=== PATIENT | female | born 1995 | race Caucasian/White ===

== ENCOUNTER 2018-08-04 04:10 | Emergency (ER) | payer OTHER ==
[2018-08-04] MEDS ORDERED: Ondansetron ODT 8 MG TAB ONE (05:22)
[2018-08-04] MEDS ORDERED: diphenhydrAMINE 50 MG/ML VIAL ONE (05:22)
[2018-08-04] MEDS ORDERED: Metoclopramide HCl 10 MG/2 ML VIAL ONE (05:22)
[2018-08-04 05:31] LABS: #Eosinphils 0.1 thou/uL (0.0-0.7); #Lymphocytes 1.1 thou/uL (1.20-3.40); #Monocytes 0.6 thou/uL (0.11-0.59); #Neutrophils 9.3 thou/uL (1.40-6.50); %Basophils 0.2 % (0.0-1.0); %Eosinophils 0.6 % (0.0-10.0); %Lymphocytes 9.9 % (21.0-51.0); %Monocytes 5.3 % (0.0-10.0); %Neutrophils 84.1 % (42.0-75.0); Hemoglobin 10.8 g/dL (12.0-16.0); Mean Corpuscular HGB CONC 32.5 g/dL (32.0-36.0); Mean Corpuscular Hemoglobin 27.9 pg (27.0-31.0); Mean Corpuscular Volume 85.7 fL (78.0-98.0); Mean Platelet Volume 7.5 fL (7.4-10.4); Platelet Count 194 thou/uL (130-400); Red Blood Cell (RBC) Count 3.88 mill/uL (4.20-5.40)
[2018-08-04 05:54] LABS: ALT (SGPT) 9 U/L (8-55); AST (SGOT) 16 U/L (5-34); Albumin 4.2 g/dL (3.5-5.0); Alkaline Phosphatase 68 U/L (40-150); Anion Gap 13 mmol/L (10-20); BUN (Urea Nitrogen) 12 mg/dL (7.0-18.7); Bilirubin, Total 0.3 mg/dL (0.2-1.2); Calc. Creatinine Clearance 0 mL/min (70-130); Calcium 9.5 mg/dL (7.8-10.44); Carbon Dioxide 22 mmol/L (22-29); Chloride 107 mmol/L (98-107); Estimated GFR-MDRD 88; Globulin 2.8 g/dL (2.4-3.5); Glucose 107 mg/dL (70-105); Potassium 3.7 mmol/L (3.5-5.1); Sodium 138 mmol/L (136-145)
[2018-08-04] MEDS ORDERED: Ketorolac Tromethamine 30 MG/ML VIAL ONE (06:33)
--- NOTE | 2018-08-04 07:35 | CT ---
CT HEAD NONCONTRAST PERFORMED ON AN EMERGENCY BASIS: Date: 08/04/18 Time: 0557 hours HISTORY: Headache. FINDINGS: There is no evidence of acute intracranial hemorrhage or infarct. Small, ill-defined area of decrease d density is noted within the left frontal white matter. There is no mass effect or shift of midline structures. Ventricles appear normal in size, shape, and position. Visualized paranasal sinuses remai n well aerated. IMPRESSION: No acute intracranial abnormalities are reliably demonstrated. The area of decreased density within t he left frontal white matter, however, is unusual for a patient of this age and warrants further eval uation. Please consider nonemergent MRI brain, with and without Gadolinium contrast, for better aziza cterization. POS: JESSICA
== END 2018-08-04 06:46 | disposition home or self-care (01) ==
LOC: ERS 04:10
DX: R51 Headache (principal); D64.9 Anemia, unspecified
CPT/HCPCS: 36415; 70450; 80053; 85025; 96365; 96375; J1200; J1885; J2765

== ENCOUNTER 2018-10-27 08:28 | Outpatient (CLI) | payer OTHER ==
--- NOTE | 2018-10-27 10:59 | MRI ---
BRAIN MRI WITH AND WITHOUT CONTRAST: DATE: 10/27/2018. COMPARISON: None. HISTORY: Headache, pain behind both eyes. TECHNIQUE: Multiplanar, multisequence MR imaging of the brain is obtained with and without contrast. FINDINGS: The axial gradient echo imaging demonstrates no evidence for intracranial hemorrhage. The diffusion weighted imaging demonstrates no evidence for acute infarction. On the FLAIR and T2 weighted imaging, there is a focus of hyperdensity within the periventricular whi te matter adjacent to the frontal horn of the left lateral ventricle measuring approximately 6 mm in transverse dimension. There is an additional focus of increased signal intensity measuring 3-4 mm wi thin the deep white matter of the left frontal lobe on image 18. An additional subcortical white mat ter focus of hyperintensity on left frontal lobe on image 19 measures in the 3-4 mm range. There is a focus of increased signal intensity within the subcortical white matter of the right frontal lobe o n sagittal FLAIR image 7 measuring approximately 3 mm. No focus of abnormal signal intensity is identified within the middle cerebellar peduncle on either s clement. Arterial flow voids at the axial level of the skull base appear grossly unremarkable on the T2 weight ed imaging. There is no midline shift or mass effect. No ventricular enlargement. Postcontrast antonio ging demonstrates no evidence for abnormal enhancement. Regional bone marrow signal intensity appear s within normal limits. IMPRESSION: Foci of signal abnormality within the white matter as detailed above, nonspecific. Such foci of abno rmal signal intensity can be seen on the basis of demyelinating disease (multiple sclerosis), vasculi tis, lyme disease, and sequelae of migraine headaches. Clinical correlation is essential. Cerebrosp inal fluid analysis may be beneficial for further assessment. POS: [facility]
== END 2018-10-27 08:29 | disposition home or self-care (01) ==
LOC: TBSIIMAG 08:28
PROVIDERS: ATTEND Neurological Surgery
DX: R51 Headache (principal); G35 Multiple sclerosis; I77.6 Arteritis, unspecified; A69.20 Lyme disease, unspecified
CPT/HCPCS: 70553

== ENCOUNTER 2019-03-09 20:32 | Emergency (ER) | payer OTHER ==
[2019-03-09] MEDS ORDERED: Ondansetron ODT 4 MG TAB ONE (21:22)
[2019-03-09] MEDS ORDERED: Acetaminophen 500 MG TAB ONE (21:22)
[2019-03-09 21:43] LABS: Bacteria/HPF None Seen HPF (None Seen); Bilirubin Negative (Negative); Blood, Urine Trace (Negative); Clarity Clear (Clear); Glucose, Urine (Dipstick) Normal (Negative); Leukocyte Negative Leu/uL (Negative); Nitrite Negative (Negative); Protein, Urine (Dipstick) 30 mg/dL (Neg-Trace); Squamous Epithelial 0-3 HPF (0-3); Urobilinogen Normal mg/dL (Less than 2); WBC/HPF 0-3 HPF (0-3)
[2019-03-09 21:44] LABS: Pregnancy Test - Urine (BHCG) POSITIVE (Negative); Pregu Control Background? CLEAR/WHITE (CLR/WHITE); Pregu Control Bar Appear? YES (CONTROL BAR); Specific Gravity 1.013 (1.002-1.036)
[2019-03-09 21:45] LABS: #Lymphocytes 0.9 thou/uL (1.20-3.40); #Monocytes 0.7 thou/uL (0.11-0.59); #Neutrophils 4.4 thou/uL (1.40-6.50); %Basophils 0.5 % (0.0-1.0); %Eosinophils 0.8 % (0.0-10.0); %Monocytes 11.9 % (0.0-10.0); %Neutrophils 72.8 % (42.0-75.0); Hemoglobin 10.5 g/dL (12.0-16.0); Mean Corpuscular HGB CONC 32.6 g/dL (32.0-36.0); Mean Corpuscular Hemoglobin 27.4 pg (27.0-31.0); Mean Corpuscular Volume 84.2 fL (78.0-98.0); Mean Platelet Volume 7.4 fL (7.4-10.4); Platelet Count 197 thou/uL (130-400); RBC Distribution Width 14.1 % (11.5-14.5); Red Blood Cell (RBC) Count 3.82 mill/uL (4.20-5.40); White Blood Cell (WBC) Count 6.1 thou/uL (4.8-10.8)
--- NOTE | 2019-03-09 21:51 | RAD ---
TWO VIEWS OF THE CHEST: 03/09/19 COMPARISON: None. HISTORY: Fever. FINDINGS: The lungs are clear. Heart and mediastinal contours are unremarkable. IMPRESSION: No acute findings. POS: OFF
[2019-03-09 22:04] LABS: ALT (SGPT) 7 U/L (8-55); AST (SGOT) 14 U/L (5-34); Albumin 4.4 g/dL (3.5-5.0); Alkaline Phosphatase 72 U/L (40-150); Anion Gap 11 mmol/L (10-20); BUN (Urea Nitrogen) 15 mg/dL (7.0-18.7); Bilirubin, Total 0.4 mg/dL (0.2-1.2); Calc. Creatinine Clearance 0 mL/min (70-130); Calcium 9.7 mg/dL (7.8-10.44); Carbon Dioxide 24 mmol/L (22-29); Chloride 106 mmol/L (98-107); Estimated GFR-MDRD 86; Globulin 2.9 g/dL (2.4-3.5); Glucose 91 mg/dL (70-105); Potassium 3.3 mmol/L (3.5-5.1); Protein, Total 7.3 g/dL (6.0-8.3); Sodium 138 mmol/L (136-145)
== END 2019-03-09 22:25 | disposition home or self-care (01) ==
LOC: ERS 20:32
DX: O98.511 Other viral diseases complicating pregnancy, first trimester (principal); B34.9 Viral infection, unspecified; O99.711 Diseases of the skin and subcutaneous tissue complicating pregnancy, first trimester; L98.429 Non-pressure chronic ulcer of back with unspecified severity; O99.011 Anemia complicating pregnancy, first trimester; Z3A.01 Less than 8 weeks gestation of pregnancy
CPT/HCPCS: 36415; 71046; 80053; 81003; 81015; 81025; 83605; 85025; 87081; 87430; 87804; Q0162

== ENCOUNTER 2019-08-01 07:00 | Day surgery (SDC) | payer OTHER ==
[2019-08-01 07:47] VITALS: BMI 28.3
[2019-08-01] MEDS ORDERED: hydrALAZINE 20 MG/ML VIAL SLOW IVP PRN (08:28)
--- NOTE | 2019-08-01 12:38 | PRG ---
DATE OF SERVICE: 08/01/2019 PRESENTING COMPLAINT: Twenty-four weeks gestation. The patient fell forward on stairs. Did not hit abdomen, has lower back pain. HISTORY OF PRESENT ILLNESS: Ms. Seay is a 24-year-old 5, para 3, AB 1 with a history of delivery as early as 35 weeks. 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 She fell forward on some stairs. She did not have abdominal trauma. She complains of back pain. I want to make sure she was not in labor. The patient knows her blood type is A negative. SQUEEGEE FINISHER HISTORY: As noted. Blood type A negative. Antepartum record not available on the unit. MEDICAL HISTORY: The patient has extensive medical history, history of back pain, wound problems, etc SURGICAL HISTORY: Noncontributory. ALLERGIES: ERYTHROMYCIN, Z-LALI AND SULFA. SOCIAL HISTORY: Denies tobacco, alcohol, or drug use. FAMILY HISTORY: Noncontributory. REVIEW OF SYSTEMS: Noncontributory. PHYSICAL EXAMINATION: GENERAL: White female, 98.5 respirations 18, pulse 82. HEENT: Within normal limits. LUNGS: Clear to auscultation bilaterally. HEART: Regular rhythm. ABDOMEN: Soft and nontender without rebound or guarding. No palpable contractions are noted. FHTs 140s. Pelvic exam deferred. EXTREMITIES: Without clubbing, cyanosis, or edema. monitoring was carried out minutes. heart rate tracing was obtained, which was 140s to 150s with no decelerations. The patient had tocometer placed and had no contractions noted. Blood type was A negative. Kleihauer-Betke stain was 0.00%. IMPRESSION: No evidence of abruption or maternal hemorrhage with nontraumatic abdomen fall at work at 24 weeks gestation. PLAN: Discharge home. The patient given excuse for tonight and the patient is scheduled to keep scheduled followup with Dr. Davis. Job ID: [id number]
== END 2019-08-01 12:30 | disposition home health service (06) ==
LOC: L&D/OP 07:00
PROVIDERS: ATTEND Obstetrics & Gynecology
DX: O99.89 Other specified diseases and conditions complicating pregnancy, childbirth and the puerperium (principal); M54.5 Low back pain; O09.212 Supervision of pregnancy with history of pre-term labor, second trimester; Z3A.24 24 weeks gestation of pregnancy; Z88.1 Allergy status to other antibiotic agents; Z88.2 Allergy status to sulfonamides; Z88.8 Allergy status to other drugs, medicaments and biological substances; W10.9XXA Fall (on) (from) unspecified stairs and steps, initial encounter; Y99.0 Civilian activity done for income or pay
CPT/HCPCS: 36415; 85460

== ENCOUNTER 2019-08-02 20:36 | Day surgery (SDC) | payer OTHER ==
[2019-08-02 21:04] VITALS: BMI 28.3
[2019-08-02] MEDS ORDERED: hydrALAZINE 20 MG/ML VIAL SLOW IVP PRN (22:02)
[2019-08-02 23:23] LABS: Amnisure Test No Membranes Rupture (No Rupture)
[2019-08-02 23:24] LABS: Amnisure Internal Control QC ACCEPTABLE (ACCEPTABLE)
--- NOTE | 2019-08-03 10:12 | PRG ---
DATE OF SERVICE: 08/02/2019 PRIMARY OB: Dr. Kiel Davis. CHIEF COMPLAINT: Vaginal bleeding and cramping. HISTORY OF PRESENT ILLNESS: The patient is a 24-year-old, G5, P3 female with an intrauterine at 25 weeks gestation, who re-presented to [facility] Emergency Room with complaints of some vaginal spotting and cramping. She was initially seen couple of days ago for a fall, was evaluated, found to be with no evidence of labor or abruption, has negative Kb and was discharged home. The patient reports she continues to have cramping and bleeding, was then transferred here to Labor and Delivery. Upon arrival, the patient reports that she noticed her bleeding only when she urinated. She reports she was diagnosed with urinary tract infection at [facility]. She also reports that this cramping that she has been feeling is more pelvic pain present with activity and movement primarily. She denies any recent illness, fever, further trauma, falls, headache, chest pain, shortness of breath, nausea, vomiting, diarrhea, constipation, hip problems, knee problems, muscle weakness. She denies change in discharge. She reports she had an intercourse about 3 days ago. PAST MEDICAL HISTORY: Significant for back pain, wound problems, and anemia. PAST SURGICAL HISTORY: Tonsillectomy, D and C. SOCIAL HISTORY: Denies drug, alcohol, or tobacco use. ALLERGIES: ERYTHROMYCIN, Z-LALI, AND SULFA DRUGS. MEDICATIONS: Iron, Zofran, and vitamins. OB LABS: Unavailable at time of dictation. REVIEW OF SYSTEMS: Per HPI. PHYSICAL EXAMINATION: VITAL SIGNS: Blood pressure 119/56, heart rate 77, saturating 97% on room air, temperature 98.0, respiratory rate of 18. GENERAL: She appears to be in no acute distress. She is alert, oriented, cooperative, and pleasant to interact with. HEENT: Head is normocephalic, atraumatic. LUNGS: Clear to auscultation bilaterally. HEART: Regular rate and rhythm. ABDOMEN: Gravid and soft. She does have some suprapubic tenderness to palpation and some tenderness with deviation of the uterus to the left and right, but very mild. EXTREMITIES: Nontender, nonedematous. : Vulva is without masses, lesions, or erythema. Vagina is moist with significant discharge present. There is no staining of the discharge, any active bleeding visible. Cervix is visibly closed. No lesions visible on her vulvar labia. Rectum does not have any visible hemorrhoids or staining of blood. Cervical exam; cervix is closed, thick, and high. heart tracing shows fetus with baseline in the 150s with moderate long-term variability, appropriate for 25 weeks gestation. Tocometer showing no contractions visible or present. LABORATORY STUDIES: Urinalysis performed at the outside facility shows blood, bacteria, and leukocyte esterase in her urine. Culture is pending. AmniSure test is negative. VPIII is positive for bacterial vaginosis. ASSESSMENT AND PLAN: The patient is a 24-year-old multiparous female with an intrauterine at 25 weeks, presenting for vaginal bleeding. However, by history, it sounds like the blood she has been experiencing is primarily associated with urination. She has no evidence of any lacerations or bleeding or blood present in the vaginal vault or staining. She does have sperm present on her VPIII slide suggesting that this discharge has at least some part of it has been present for several days, making me confident that this bleeding has not been coming from her vagina. She is Rh negative. However, her Kb test 3 days ago was negative and has not had any further trauma. The patient has been discharged home. She will be given a prescription of Keflex 500 mg to be taken 3 times a day for the next week and Flagyl 500 mg to be taken twice a day for the next week. The patient has had left before prescriptions were provided. A phone call has been made to her phone and prescriptions have been sent to the pharmacist on record. Job ID: [id number]
== END 2019-08-02 23:36 | disposition home or self-care (01) ==
LOC: L&D/OP 20:36
PROVIDERS: ATTEND Obstetrics & Gynecology
DX: O46.92 Antepartum hemorrhage, unspecified, second trimester (principal); O23.592 Infection of other part of genital tract in pregnancy, second trimester; B96.89 Other specified bacterial agents as the cause of diseases classified elsewhere; O99.89 Other specified diseases and conditions complicating pregnancy, childbirth and the puerperium; R10.2 Pelvic and perineal pain; Z3A.25 25 weeks gestation of pregnancy; Z79.899 Other long term (current) drug therapy; Z88.1 Allergy status to other antibiotic agents; Z88.2 Allergy status to sulfonamides; Z88.8 Allergy status to other drugs, medicaments and biological substances; Z91.040 Latex allergy status
CPT/HCPCS: 84112; 87480; 87510; 87660

== ENCOUNTER → 2019-10-17 | Day surgery (SDC) | payer OTHER ==
[~2019-10-17] MED LIST: Lactated Ringer's 1,000 ML IV SCH; Ondansetron PF 4 MG/2 ML Vial IVP SCH; hydrALAZINE 20 MG/ML VIAL SLOW IVP PRN
[2019-10-17 19:43] VITALS: BP 117/65; TEMP 98.3; BMI 27.8
--- NOTE | 2019-10-17 20:29 | PDOC.LDHP ---
Labor and Delivery H&P Chief complaint: abdominal pain, other (back pain, nausea) HPI: 24 y/o at 35w5d, patient of Dr. Davis, presents with constant lower back pain, crampy lower abdominal pain, nausea/vomiting, and headache. Patient reports she is able to tolerate PO fluids. Back pain is tender between "the dimples" on her back and nothing has relieved it. Denies VB, LOF, ctx, or decreased FM. ROS neg for HEENT, CV, pulm, GI, , neuro, psych, skin, musculoskeletal, or constitutional symptoms other than mentioned above. OB History Details: 1 prior PTD - on 17-OH prog 2 prior TSVD Current complications: none Past Medical History: Hx UTI, back pain Current medications: pre- vitamins, other (progesterone) Previous surgical history: other (tonsillectomy, D&C) Allergies/Adverse Reactions: Allergies Allergy/AdvReac Type Severity Reaction Status Date / Time erythromycin base Allergy Mild Verified 08/01/19 07:39 prednisone Allergy Mild Hives Verified 08/01/19 07:41 Sulfa (Sulfonamide Allergy Mild Hives Verified 08/01/19 07:39 Antibiotics) Latex, Natural Rubber Allergy Verified 08/01/19 07:39 Social history: none - Physical Exam Vital signs reviewed and normal: yes General: NAD, resting Lungs: nonlabored breathing Abdomen: gravid Extremeties: no edema FHT: category 1 (140s, mod variability, + accels, no decels) [place] contractions every: none - Vaginal Exam cm dilated: 1 (posterior) Effacement: 0% Station: -3 - Assessment 24 y/o at 35w5d with musculoskeletal discomforts of . UA with some blood but no e/o UTI. status reassuring with reactive NST. No e/o PTL. - Plan -: D/c home with precautions. Advised to keep all appointments. Comfort measures discussed.
[2019-10-17 20:54] LABS: Bilirubin Negative (Negative); Blood, Urine 2+ (Negative); Clarity Clear (Clear); Glucose, Urine (Dipstick) Normal (Negative); Leukocyte 25 Leu/uL (Negative); Nitrite Negative (Negative); Protein, Urine (Dipstick) 30 mg/dL (Neg-Trace); Renal Epithelial 0-3 HPF (None Seen); Squamous Epithelial 0-3 HPF (0-3); Urobilinogen Normal mg/dL (Less than 2); WBC/HPF 0-3 HPF (0-3)
[2019-10-17 20:58] LABS: Bacteria/HPF Rare-Few HPF (None Seen)
[2019-10-17 20:59] LABS: Urine Culture Reflex No No
== END ==
LOC: L&D/OP 19:03
PROVIDERS: ATTEND Obstetrics & Gynecology
DX: O99.89 Other specified diseases and conditions complicating pregnancy, childbirth and the puerperium (principal); R10.30 Lower abdominal pain, unspecified; R11.2 Nausea with vomiting, unspecified; R51 Headache; M54.5 Low back pain; Z88.1 Allergy status to other antibiotic agents; Z88.2 Allergy status to sulfonamides; Z88.8 Allergy status to other drugs, medicaments and biological substances; Z91.048 Other nonmedicinal substance allergy status; Z91.040 Latex allergy status
CPT/HCPCS: 81001

== ENCOUNTER 2019-10-21 15:33 | Observation (INO) | payer OTHER ==
[2019-10-21 16:18] LABS: #Eosinphils 0.1 thou/uL (0.0-0.7); #Lymphocytes 0.7 thou/uL (1.20-3.40); #Monocytes 0.3 thou/uL (0.11-0.59); %Basophils 0.1 % (0.0-1.0); %Eosinophils 0.9 % (0.0-10.0); %Lymphocytes 11.6 % (21.0-51.0); %Monocytes 4.7 % (0.0-10.0); %Neutrophils 82.7 % (42.0-75.0); Hemoglobin 8.4 g/dL (12.0-16.0); Mean Corpuscular HGB CONC 34.2 g/dL (32.0-36.0); Mean Corpuscular Hemoglobin 31.2 pg (27.0-31.0); Mean Corpuscular Volume 91.3 fL (78.0-98.0); Mean Platelet Volume 7.4 fL (7.4-10.4); Platelet Count 187 thou/uL (130-400); RBC Distribution Width 16.5 % (11.5-14.5); Red Blood Cell (RBC) Count 2.69 mill/uL (4.20-5.40)
[2019-10-21 16:39] LABS: ALT (SGPT) Less than 7 U/L (8-55); AST (SGOT) 10 U/L (5-34); Albumin 3.2 g/dL (3.5-5.0); Alkaline Phosphatase 123 U/L (40-110); Anion Gap 15 mmol/L (10-20); BUN (Urea Nitrogen) 5 mg/dL (7.0-18.7); Calc. Creatinine Clearance 0 mL/min (70-130); Calcium 8.8 mg/dL (7.8-10.44); Carbon Dioxide 18 mmol/L (22-29); Chloride 105 mmol/L (98-107); Estimated GFR-MDRD Greater than 90; Globulin 3.1 g/dL (2.4-3.5); Glucose 98 mg/dL (70-105); Magnesium 1.6 mg/dL (1.6-2.6); Potassium 3.6 mmol/L (3.5-5.1); Protein, Total 6.3 g/dL (6.0-8.3); Sodium 134 mmol/L (136-145)
[2019-10-21] MEDS ORDERED: Acetaminophen 500 MG TAB ONE (17:27)
[2019-10-21 17:46] LABS: Bilirubin Negative (Negative); Blood, Urine Moderate (Negative); Glucose, Urine (Dipstick) Negative (Negative); Leukocyte Negative (Negative); Nitrite Negative (Negative); Protein, Urine (Dipstick) 30 mg/dL (Neg-Trace); Urobilinogen 0.2 mg/dL (Less than 2)
[2019-10-21 17:48] LABS: Bacteria/HPF None Seen HPF (None Seen); Clarity Clear (Clear); Squamous Epithelial 0-3 HPF (0-3); WBC/HPF 0-3 HPF (0-3)
[2019-10-21] MEDS ORDERED: Ondansetron PF 4 MG/2 ML Vial IVP PRN (19:57)
[2019-10-21] MEDS ORDERED: Ondansetron ODT 4 MG TAB SL PRN (19:57)
[2019-10-21] MEDS ORDERED: Lactated Ringer's 1,000 ML IV SCH (20:00)
[2019-10-21 21:05] VITALS: BP 108/55; TEMP 97.7
--- NOTE | 2019-10-21 22:31 | CON ---
DATE OF CONSULTATION: REASON FOR CONSULTATION: Skin rash. HISTORY OF PRESENT ILLNESS: A 24-year-old who is in her 36th week of I believe her 3rd or 4th and has developed fairly acute onset of diffuse nodular erythematous skin eruption in face, arms and legs, which started fairly suddenly with past 3 days. She does not take any medication right now other than multivitamins. No respiratory symptoms. No visual symptoms. Maybe a little blurred vision on left side from the swelling. No sore throat, odynophagia, dysphagia. No dental pain or back pain. No cough or sputum production. No abdominal pain or diarrhea. No genitourinary symptoms. No neurological symptoms. MEDICAL HISTORY: G4, P3, D and C in 2012. Some form of back surgery in August 2019 and tonsillectomy. SOCIAL HISTORY: Never smoker, lives in [place] with her kids and apartment. 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 ALLERGIES: 1. AZITHROMYCIN. 2. ERYTHROMYCIN. 3. LATEX. 4. PREDNISONE. 5. SULFA. PHYSICAL EXAMINATION: VITAL SIGNS: Temperature 97.7, BP 108/55, pulse 81, respirations 17, O2 saturation 100. SKIN: Exam shows erythematous nodular lesions, very pruritic, some of them are more tender or painful. She also has those distributed in the facial area in the malar region and forehead with nodular shape and consistency/texture. Peripheral IV access, no Crawford catheter, ocular movements conjugate. Oral cavity normal. NECK: Supple. LUNGS: Symmetric. Clear breath sounds. HEART: S1 and S2. Regular rate. No S3 or S4. ABDOMEN: Soft, it is distended from her 36 weeks gestation, but not tender. No bladder distention. She does have some joint pain on mobilization of the wrists and ankles. NEUROLOGIC: Nonfocal. LABORATORY DATA: Sodium 134, creatinine 0.74. Liver profile normal. Alkaline phosphatase 123. CRP 4.14. Albumin 3.2. Urinalysis was fairly normal. Complement elevated 199, C4 44.8. Antinuclear antibodies pending. No imaging studies. ASSESSMENT: Otherwise healthy young woman in her 4th gestation at 36 weeks who now has developed acute onset of nodular erythematous, very pruritic area skin eruption in appendicular structures and face. The differential diagnosis includes erythema nodosum as the more likely scenario versus systemic lupus erythematosus that is less likely. Viral infection is unlikely in the absence of fever or malaise as well as the presence of pruritus. Management of erythema nodosum is usually symptomatic in , if the patient has quite advanced process, then corticosteroids may be attempted. She does have a history of allergy with prednisone, I am not clear on that. Other types of corticosteroids can be used including methylprednisolone, I guess. Potassium iodide may work as well unless there is a contraindication to its use in , NSAIDs and antihistaminics will help. Most of those cases of erythema nodosum are self-limited and will get better once the patient delivers the child. A skin biopsy can be attempted to evaluate the histopathology and the antinuclear antibody panel is warranted as well, although systemic lupus erythematosus is less likely or discoid lupus for that matter. Job ID: [id number]
--- NOTE | 2019-10-22 02:15 | SS ---
DATE OF ADMISSION: 10/21/2019 DATE OF DISCHARGE: 10/21/2019 PRIMARY OB: Dr. Kiel Davis. CHIEF COMPLAINT: Rash. HISTORY OF PRESENT ILLNESS: The patient is a 24-year-old G4, P3 female with an intrauterine at 36 weeks, presenting to the emergency room with an onset of a rash that began last , approximately 2-1/2 half days ago. The patient reports that she woke up with a dime-sized lesion on her face that has quickly spread on her extremities, her face, and to her neck sparing her trunk. She reports that these lesions are regular, flat initially, and painful. She also reports some pruritus. The lesions become more papular and nodular. The patient reports that she recently had a staph infection on her back that required surgery for complete healing as she was having some hypergranulation. The patient reports that she has never had this kind of rash before nor does she have any family with similar symptoms. The patient denies any sick contacts. She denies fever, nausea, vomiting, diarrhea, or constipation. She has had a cough that she reports allergy related. She reports that she takes Benadryl daily at night 12.5 mg. PAST MEDICAL HISTORY: The patient reports she has had no peripheral vision since . She is anemic. PAST SURGICAL HISTORY: She has had D and C in 2012, tonsillectomy in 2012, back surgery in August 2019 for resolution of the complications of staph infection. PSYCHIATRIC HISTORY: Negative. SOCIAL HISTORY: Denies drug, alcohol, or tobacco use. ALLERGIES: AZITHROMYCIN CAUSES HIVES, ERYTHROMYCIN, LATEX, PREDNISONE, AND SULFA DRUGS. MEDICATIONS: Zofran p.r.n. PHYSICAL EXAMINATION: VITAL SIGNS: Blood pressure 108/55, temperature 97.7, pulse of 81, respiratory rate of 17, saturating 100% on room air. GENERAL: She appears to be in no acute distress. She is alert, oriented, cooperative, and pleasant to interact with. She has nodular lesions on her face , on her cheek, a little much larger on her left cheek than her right, involving her nose and her forehead. She also has some papular lesions on her neck, more macular lesions, irregular and tender to touch, erythematous and blanching in her lower extremities. The upper extremities seem to be more advanced and are more papular. No lesions visible on her trunk. Very heart tracing shows fetus with a baseline in the 140s with moderate long-term variability, positive 15 x 15 accelerations, no decelerations. LABORATORY DATA: Show white count of 6, hemoglobin of 8.4, hematocrit 24.6, and platelets of 187,000. Sodium of 134, potassium 3.6, creatinine of 0.74, AST of 10, ALT less than 7. C-reactive protein of 4.14. Urine is positive for protein, negative ketones, negative nitrites, negative leukocyte esterase. Complement C is 199, slightly elevated. Dr. Nowak was consulted for evaluation of Ms. Seay. After evaluation, suspicion from him is that she has developed nodular erythematosus. Dr. Nowak suggest typical treatment is symptomatic and reports that steroids is a possibility. The patient has a history of prednisone, others steroids include methylprednisolone, potassium iodide is also a mainstay of treatment, however, is relatively contraindicated in , so are NSAIDs at this point in the . He reports, in most cases, erythema nodosum is self-limited and will get better once the patient delivers. Skin biopsy can be used to evaluate the histopathology as well as an ARABELLA panel. Dr. Nowak believes that lupus is a possibility, though less likely. Given these findings and recommendations, patient is discharged home with instructions to follow up with Dr. Davis on Wednesday. The patient will continue antihistamines for treatment control, potassium iodide and NSAIDs as treatment at this time is not indicated. The patient likely warrants early delivery and can begin treatment at that point. Dr. Poon, the on-call physician at this time, was also updated with the encounter. Job ID: [id number] MTDD
[2019-10-24 06:11] LABS: Varicella Zoster IgG ABS 216 index (Immune >165)
[2019-10-24 13:13] LABS: Varicella Zoster IgM ABS Less than 0.91 index (0.00-0.90)
[2019-10-26 12:35] LABS: ANA Symphony (Qualitative) Negative (Negative); ANA Symphony (Quantitative) 0.1 Ratio (< 0.7 Negative); dsDNA IgG Antibody 0.8 IU/mL (<10 Negative)
== END 2019-10-21 22:31 | disposition home or self-care (01) ==
LOC: ERS 15:33 → 3SE 17:11
PROVIDERS: ADMIT Obstetrics & Gynecology; ATTEND Obstetrics & Gynecology
DX: O99.89 Other specified diseases and conditions complicating pregnancy, childbirth and the puerperium (principal); R21 Rash and other nonspecific skin eruption; Z90.89 Acquired absence of other organs; Z98.890 Other specified postprocedural states; Z88.1 Allergy status to other antibiotic agents; Z88.2 Allergy status to sulfonamides; Z91.040 Latex allergy status; Z3A.36 36 weeks gestation of pregnancy; Z88.0 Allergy status to penicillin
CPT/HCPCS: 36415; 80053; 81003; 81015; 83735; 85025; 86038; 86140; 86160; 86225; 86787; 87040; 87252; 87798; 96360; 96361; G0378

== ENCOUNTER 2019-11-02 05:24 | Inpatient (IN) | payer OTHER ==
[2019-11-02 06:10] VITALS: BMI 28.5
[2019-11-02] MEDS ORDERED: Ibuprofen 800 MG TAB PO PRN (06:44)
[2019-11-02] MEDS ORDERED: HYDROcodone/Acetaminophen 5/325 mg Tablet PO PRN ×3 (06:44→16:35)
[2019-11-02] MEDS ORDERED: Misoprostol 200 MCG TAB PO PRN (06:45)
[2019-11-02] MEDS ORDERED: NS w/ Oxytocin 10 units 500 ML IVPB SCH ×2 (06:45)
[2019-11-02] MEDS ORDERED: Methylergonovine 0.2 MG/ML VIAL IM PRN (06:46)
[2019-11-02] MEDS ORDERED: Carboprost 250 MCG/ML AMP IM PRN (06:46)
[2019-11-02] MEDS ORDERED: Acetaminophen 500 MG TAB PO PRN (06:47)
[2019-11-02] MEDS ORDERED: Promethazine HCl 25 MG/ML VIAL IM PRN ×3 (06:48→16:35)
[2019-11-02] MEDS ORDERED: Ondansetron PF 4 MG/2 ML Vial IVP PRN ×3 (06:48→16:35)
[2019-11-02] MEDS ORDERED: Butorphanol Tartrate 1 MG/ML VIAL SLOW IVP PRN (06:48)
[2019-11-02] MEDS ORDERED: hydrALAZINE 20 MG/ML VIAL SLOW IVP PRN ×2 (06:49→16:35)
[2019-11-02] MEDS: Lactated Ringer's 1,000 ML IV SCH ×3 (07:00→16:23)
[2019-11-02 07:36] LABS: Hemoglobin 8.7 g/dL (12.0-16.0); Mean Corpuscular Hemoglobin 31.7 pg (27.0-31.0); Mean Corpuscular Volume 93.4 fL (78.0-98.0); Mean Platelet Volume 7.2 fL (7.4-10.4); Platelet Count 304 thou/uL (130-400); RBC Distribution Width 16.9 % (11.5-14.5); Red Blood Cell (RBC) Count 2.74 mill/uL (4.20-5.40); White Blood Cell (WBC) Count 7.1 thou/uL (4.8-10.8)
[2019-11-02 08:13] LABS: Syphilis Antibody Nonreactive (Nonreactive); Syphilis Antibody Index 0.05 S/CO (<1.00 Non-Reactive)
[2019-11-02 08:14] LABS: HBSAg Index 0.13 S/CO (0-0.99); Hep B Surf Ag Non-Reactive S/CO (NonReactive)
[2019-11-02] MEDS ORDERED: Fentanyl 4 mcg/Bup 0.1% Cadd 100 ML ONE (09:48)
[2019-11-02] MEDS ORDERED: Acetaminophen 325 MG TAB PO PRN (11:24)
[2019-11-02] MEDS ORDERED: Naloxone HCl 0.4 mg/ml Vial IVP PRN ×2 (11:24)
[2019-11-02] MEDS ORDERED: Lactated Ringer's 500 ML IV PRN (11:24)
[2019-11-02] MEDS ORDERED: EPHEDRINE 25 MG/5 ML SYRINGE SLOW IVP PRN (11:24)
[2019-11-02] MEDS ORDERED: diphenhydrAMINE 50 MG/ML VIAL IVP PRN (11:24)
[2019-11-02] MEDS ORDERED: Communication Order-Pharmacy FS SCH (11:30)
[2019-11-02] MEDS ORDERED: Fentanyl 4 mcg/Bupivacaine 0.1% Cassette 100 ML EPIDURAL SCH (11:30)
[2019-11-02] MEDS ORDERED: NS / Oxytocin 40 units/1000ml 1,000 ML ONE (11:51)
[2019-11-02] MEDS ORDERED: Lidocaine 1% (PF) 30 ML VIAL ONE (11:51)
--- NOTE | 2019-11-02 14:29 | PDOC.LDHP ---
Labor and Delivery H&P HPI: 24 y/o at 38 and 0/7 weeks for medical induction as recommended by consultants due to new diagnosis of Erythema Nodosum. Current gestational age (weeks): 38 Due date: 11/16/19 Grav: 5 Para: 3 Current complications: none Abnormal US findings: No Current medications: pre- vitamins Previous surgical history: other (I&D of abcesses on her back) Allergies/Adverse Reactions: Allergies Allergy/AdvReac Type Severity Reaction Status Date / Time erythromycin base Allergy Mild Verified 10/29/19 13:14 prednisone Allergy Mild Hives Verified 10/29/19 13:14 Sulfa (Sulfonamide Allergy Mild Hives Verified 10/29/19 13:14 Antibiotics) Latex, Natural Rubber Allergy Verified 10/29/19 13:14 Social history: none - Physical Exam Vital signs reviewed and normal: yes General: NAD, resting Heart: RRR Lungs: CTAB Abdomen: gravid Extremeties: no edema FHT: category 1 - Assessment L&D Assessment: medically indicated induction - Plan Plan: admit to L&D, cervical ripening
[2019-11-02] MEDS ORDERED: Preparation H Ointment 28 GM TUBE PR PRN (16:35)
[2019-11-02] MEDS ORDERED: diphenhydrAMINE 25 MG CAP PO PRN (16:35)
[2019-11-02] MEDS ORDERED: Benzocaine-Menthol 82.5 ML CAN TOP PRN (16:35)
[2019-11-02] MEDS ORDERED: Lanolin Ointment 7 GM TUBE TOP PRN (16:35)
[2019-11-02] MEDS ORDERED: Misoprostol 200 MCG TAB VAG PRN (16:35)
[2019-11-02] MEDS ORDERED: Zolpidem Tartrate 5 MG TAB PO PRN (16:35)
[2019-11-02] MEDS ORDERED: Bisacodyl 10 MG SUPP PR PRN (16:35)
[2019-11-02] MEDS ORDERED: NS / Oxytocin 40 units/1000ml 1,000 ML IV SCH (16:35)
[2019-11-02] MEDS ORDERED: Milk Of Magnesia 30 ML UDCUP PO PRN (16:35)
[2019-11-02] MEDS ORDERED: Methylergonovine 0.2 MG TAB PO PRN (16:35)
[2019-11-02] MEDS: Ferrous Sulfate 325 MG TAB PO SCH (18:25)
[2019-11-02] MEDS: Ibuprofen 800 MG TAB PO SCH (21:30)
[2019-11-02] MEDS: Docusate Calcium (SURFAK) 240 MG CAP PO SCH (21:30)
[2019-11-03] MEDS: Ibuprofen 800 MG TAB PO SCH ×3 (05:05→21:45)
[2019-11-03 05:47] LABS: Hemoglobin 7.5 g/dL (12.0-16.0); Mean Corpuscular HGB CONC 34.2 g/dL (32.0-36.0); Mean Corpuscular Hemoglobin 32.1 pg (27.0-31.0); Mean Corpuscular Volume 93.7 fL (78.0-98.0); Platelet Count 201 thou/uL (130-400); RBC Distribution Width 16.8 % (11.5-14.5); Red Blood Cell (RBC) Count 2.35 mill/uL (4.20-5.40); White Blood Cell (WBC) Count 7.9 thou/uL (4.8-10.8)
[2019-11-03] MEDS ORDERED: Measles/Mumps/Rubella 10 MCG/0.5 ML VIAL SC ONE (09:00)
[2019-11-03] MEDS ORDERED: Adacel (T-DAP) 0.5 ML SYRINGE IM ONE (09:00)
[2019-11-03] MEDS ORDERED: Varicella virus, LIVE 0.5 ML VIAL SC ONE (09:00)
[2019-11-03] MEDS: Docusate Calcium (SURFAK) 240 MG CAP PO SCH ×2 (09:28→21:45)
[2019-11-03] MEDS: Ferrous Sulfate 325 MG TAB PO SCH ×2 (09:28→16:47)
[2019-11-03] MEDS: Prenatal Vitamin 1 TAB PO SCH (09:28)
--- NOTE | 2019-11-03 17:01 | PDOC.PP ---
Post Progress Note Post Day #: 1 PO intake tolerated: yes Flatus: yes Ambulation: yes Vital Signs (12 hours) Temp Pulse Resp BP Pulse Ox 11/03/19 11:36 97.8 F 68 20 125/54 L 11/03/19 08:00 98.9 F 68 20 116/64 98 11/03/19 05:00 97.9 F 63 16 103/52 L Weight Weight 161 lb - Physical Examination General: NAD Cardiovascular: no m/r/g, RRR Respiratory: clear to auscultation bilaterally, non-labored breathing Abdominal: + bowel sounds, lochia, no distention, appropriately TTP Extremities: negative homans (B) Skin: CS incision dry & intact, no rash Neurological: no gross focal deficits Psychiatric: A&Ox3, normal affect (Chronic Anemia, appears to be stabl eat this time.) Result Diagrams: 11/03/19 05:25 Additional Labs: Post Labs Blood Type A NEGATIVE 11/02/19 07:20 Hep Bs Antigen Non-Reactive S/CO (NonReactive) 11/02/19 07:20 - Assessment/Plan Stable chronic Anemia, with NL pulse and NL BPs. No RUSSELL or SOB reported.
[2019-11-04] MEDS: Ibuprofen 800 MG TAB PO SCH (06:14)
[2019-11-04 08:02] VITALS: BP 114/57; TEMP 98.5
[2019-11-04] MEDS: Ferrous Sulfate 325 MG TAB PO SCH (10:42)
[2019-11-04] MEDS: Docusate Calcium (SURFAK) 240 MG CAP PO SCH (10:42)
[2019-11-04] MEDS: Prenatal Vitamin 1 TAB PO SCH (10:42)
--- NOTE | 2019-11-06 07:35 | DN ---
DATE OF PROCEDURE: 11/02/2019 TIME OF SERVICE: 1415 hours central daylight savings time. PREOPERATIVE DIAGNOSES: Intrauterine at 38 weeks and 0 days with a medical term induction of labor for a new diagnosis of erythema nodosum made by the Infectious Disease team. POSTOPERATIVE DIAGNOSES: Intrauterine at 38 weeks and 0 days with a medical term induction of labor for a new diagnosis of erythema nodosum made by the Infectious Disease team. PROCEDURE PERFORMED: Spontaneous vaginal delivery over intact perineum. FINDINGS: Viable male weighing 2140 g or 4 pounds 11 ounces. Apgars of 8 and 9. QUANTITATIVE BLOOD LOSS: 150 mL. COMPLICATIONS: None. PROCEDURE IN DETAIL: The patient presented to [facility] where she was admitted to the labor and delivery service. The patient underwent a normal and uneventful labor with normal cervical dilatation until she was found to be completely dilated. She was then allowed to push and was able to bring the baby down and delivered the baby in a vertex presentation without difficulties. Once the head delivered in occiput anterior position, the shoulders followed spontaneously along with the rest of the baby's body. Once out the baby's mouth and nose were bulb suctioned. The cord was clamped and cut and baby was handed to waiting attendants. Cord blood was collected. Gentle fundal massage was performed and the placenta delivered intact without problems. Hemostasis was assured. Quantitative blood loss was calculated. Inspection of the cervix, vaginal vault, and perineum did not reveal any lacerations needing suturing. Once again, hemostasis was within normal limits and the patient was allowed to recover in the labor and delivery room. Baby went to nursery. Job ID: [id number]
== END 2019-11-04 12:25 | disposition home or self-care (01) | DRG 807 ==
LOC: L&D 05:24 → 3SW 18:00
PROVIDERS: ADMIT Obstetrics & Gynecology; ATTEND Obstetrics & Gynecology
PROC: 10E0XZZ Delivery of Products of Conception, External Approach (ICD-10-PCS; principal; 2019-11-02)
PROC: 10907ZC Drainage of Amniotic Fluid, Therapeutic from Products of Conception, Via Natural or Artificial Opening (ICD-10-PCS; 2019-11-02)
PROC: 3E033VJ Introduction of Other Hormone into Peripheral Vein, Percutaneous Approach (ICD-10-PCS; 2019-11-02)
DX: O99.72 Diseases of the skin and subcutaneous tissue complicating childbirth (principal); Z37.0 Single live birth; Z3A.38 38 weeks gestation of pregnancy; L52 Erythema nodosum; O99.02 Anemia complicating childbirth; D64.9 Anemia, unspecified
CPT/HCPCS: 36415; 51702; 85027; 85461; 86780; 86850; 86870; 86900; 86901; 87340; 90384; 96372; J2001; J2590

== ENCOUNTER 2021-06-25 08:51 | Outpatient (CLI) | payer OTHER | END 2021-06-25 08:52 | disposition home or self-care (01) | LOC: ULT 08:51 | PROVIDERS: ATTEND Internal Medicine Gastroenterology | DX: R10.9 Unspecified abdominal pain (principal); R16.1 Splenomegaly, not elsewhere classified | CPT/HCPCS: 76700 ==

== ENCOUNTER 2022-12-01 13:08 | Outpatient (CLI) | payer OTHER | END 2022-12-01 13:09 | disposition home or self-care (01) | LOC: ULT 13:08 | PROVIDERS: ATTEND Nurse Practitioner Family | DX: I82.432 Acute embolism and thrombosis of left popliteal vein (principal) ==